=== PATIENT | female | born 1980 | race Caucasian/White ===

== ENCOUNTER 2019-01-29 19:39 | Emergency (ER) | payer OTHER ==
[~2019-01-29] VITALS: Ht 162.6 cm; Wt 61.2 kg
[~2019-01-29 19:39] MED LIST: ABAC300; ALBU.083IS IH; ALBU90OI; ALBU90OI INH; ALBU90OI6 INH; ALBU90OI61 INH; AMIT50; AMOX500 PO; ASPI81CH PO; ATEN25 PO; AZIT250 PO; AZIT500 PO; Ativan0.5 MG PO; BENZ100A PO; BUSP10 PO; BUSP15 PO; Bactrim Ds Tab1 EACH PO; CEPH500 PO; CLON.5 PO; CLON1 PO; CODACE30 PO; CRUTCH4 USE; CYCL10 PO; DICMIS50EC PO; DOCU100 PO; DULOXETINE HCL30 MG PO; ENDOCET; ESTRODOL TP; FAMO20 PO; FLUC150A PO; FLUC200 PO; FLUSAL2505 INH; FLUT110OIA INH; GUAPSEER PO; HERBS; HYDACE5 PO; HYDMOR2 PO; HYDMOR4 PO; HYDPAM50 PO; HYDR1TAB94 PO; HYOS.125 SL; IBUP800 PO; Imitrex25 MG PO; Imitrex50 MG PO; KETO10 PO; Keflex500 MG PO; LEVO750 PO; LIDO2L TOP; LORA.5 PO; LORA2 PO; Lamictal200 MG PO; MECL12.5 PO; MECL25 PO; MEDR5 PO; MELA3; MELA3 PO; METCAR500 PO; METCAR750; MONTELUKAST SOD10 MG; NAPR500; NAPR500 PO; NORCO PO; Naprosyn375 MG PO; Naprosyn500 MG PO; Norco 5-325 Ta1 EACH PO; OLAN5 PO; OMEP20ER PO; ORACONA PO; OXYACE5T PO; OXYC10TA19; OXYC5 PO; PANT20; PANT40; PANT40 PO; PHENA200 PO; PRAZ1 PO; PRAZ2 PO; PRAZ5 PO; PRED1 PO; PROACE100 PO; PROC10 PO; PROM25 PO; PROM50S PR; Prazosin HCl1 MG PO; Prazosin HCl2 MG PO; Pyridium100 MG PO; RANI150 PO; RXHYDMOR2 PO; RXOXYACE PO; SACC250C; SERT25 PO; SULF10OPSA OS; SULTRIDS PO; SUMA20NI; SUMA25 PO; TIOT18; TIOT18 IH; TIOT18 INH; TRAM50 PO; TRAZ100 PO; TRAZ50 PO; TRAZODONE; Tylenol325 MG PO; Valium5 MG PO; Zithromax250 MG PO; [UNRECOGNIZED DRUG - OTHER] PO
[2019-01-29] MEDS ORDERED: Bactrim Ds Tab1 EACH PO (20:13)
== END 2019-01-29 20:23 | disposition home or self-care (01) ==
LOC: ER 19:39
DX: L03.314 Cellulitis of groin (principal); L02.214 Cutaneous abscess of groin; Z88.1 Allergy status to other antibiotic agents; Z88.5 Allergy status to narcotic agent; Z88.6 Allergy status to analgesic agent; Z91.048 Other nonmedicinal substance allergy status; Z79.899 Other long term (current) drug therapy; J45.909 Unspecified asthma, uncomplicated; F41.9 Anxiety disorder, unspecified; F17.210 Nicotine dependence, cigarettes, uncomplicated
CPT/HCPCS: 99282

== ENCOUNTER 2020-11-10 02:46 | Inpatient (IN) | payer OTHER ==
[~2020-11-10] VITALS: Ht 162.6 cm; Wt 67.7 kg
[2020-11-10 04:21] LABS: BASOPHILS ABSOLUTE AUTO 0.09 K/mm3 (0.00-0.23); BASOPHILS PERCENT AUTO 1 % (0-2); EOSINOPHILS ABSOLUTE AUTO 0.83 K/mm3 (0.00-0.68); EOSINOPHILS PERCENT AUTO 6 % (0-6); Hematocrit 35.1 % (33.0-51.0); Hemoglobin 11.4 g/dL (11.5-16.0); IMMATURE GRAN ABSOLUTE AUTO 0.07 K/mm3 (0.00-0.10); IMMATURE GRAN PERCENT AUTO 1 % (0-1); LYMPHOCYTES ABSOLUTE AUTO 4.11 K/mm3 (0.84-5.20); LYMPHOCYTES PERCENT AUTO 29 % (21-46); MONOCYTES ABSOLUTE AUTO 1.07 K/mm3 (0.16-1.47); MONOCYTES PERCENT AUTO 8 % (4-13); Mean Corpuscular HGB 29.5 pg (26.0-34.0); Mean Corpuscular HGB Conc 32.5 g/dL (31.5-36.5); Mean Corpuscular Volume 91 fL (80-100); Mean Platelet Volume 9.1 fL (9.1-12.4); NEUTROPHILS ABSOLUTE AUTO 7.93 K/mm3 (1.96-9.15); NEUTROPHILS PERCENT AUTO 56 % (41-73); Platelet Count 361 K/mm3 (150-400); RDW Coefficient Variation 13.6 % (11.7-14.2); RDW Standard Deviation 45.2 fL (35.1-46.3); Red Blood Cell Count 3.86 M/mm3 (3.80-5.20)
[2020-11-10 04:41] LABS: Anion Gap 4 mmol/L (6-16); Blood Urea Nitrogen 12 mg/dL (8-24); Bun/Creatinine Ratio 20.4 (12.0-20.0); CO2, Blood 30 mmol/L (21-32); Calcium, Blood 8.7 mg/dL (8.5-10.1); Chloride, Blood 103 mmol/L (98-108); Creatinine, Blood 0.59 mg/dL (0.40-1.00); Glomerular Filtration Rate >60 (60-); Glucose, Blood 95 mg/dL (70-99); Potassium, Blood 3.5 mmol/L (3.5-5.5); Sodium, Blood 137 mmol/L (136-145)
[2020-11-10 12:33] LABS: U Amphetamine Screen DETECTED; U Barbituate Screen Not Detected; U Benzodiazapine Screen Not Detected; U Buprenorphine Screen Not Detected; U Cannabinoids Screen Not Detected; U Cocaine Screen Not Detected; U Methadone Screen Not Detected; U Methamphetamine Screen DETECTED; U Opiates Screen DETECTED; U Oxycodone Screen Not Detected; U Phencyclidine Screen Not Detected; U Propoxyphene Screen Not Detected
[2020-11-10 15:02] LABS: SARS-Cov-2 (COVID-19) PCR, MMC NEGATIVE (NEGATIVE)
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
--- NOTE | 2020-11-11 04:22 | NUR ---
SHIFT SUMMARY A/OX3, SBA TO BSC D/T PLACEMENT OF R. FOOT IV. DRESSING TO R. WRIST C/D/I. MEDICATED FOR PAIN PER EMAR. VSS, NO ACUTE CHANGES AT THIS TIME. BED IN LOWEST POSITION WITH CALL LIGHT IN REACH. WILL CONTINUE TO MONITOR AND REPORT TO ONCOMING RN.
[2020-11-11 06:08] LABS: BASOPHILS ABSOLUTE AUTO 0.04 K/mm3 (0.00-0.23); BASOPHILS PERCENT AUTO 0 % (0-2); EOSINOPHILS PERCENT AUTO 0 % (0-6); Hematocrit 33.8 % (33.0-51.0); Hemoglobin 10.6 g/dL (11.5-16.0); IMMATURE GRAN ABSOLUTE AUTO 0.06 K/mm3 (0.00-0.10); IMMATURE GRAN PERCENT AUTO 1 % (0-1); LYMPHOCYTES ABSOLUTE AUTO 1.63 K/mm3 (0.84-5.20); LYMPHOCYTES PERCENT AUTO 13 % (21-46); MONOCYTES ABSOLUTE AUTO 0.31 K/mm3 (0.16-1.47); MONOCYTES PERCENT AUTO 3 % (4-13); Mean Corpuscular HGB Conc 31.4 g/dL (31.5-36.5); Mean Corpuscular Volume 89 fL (80-100); Mean Platelet Volume 9.4 fL (9.1-12.4); NEUTROPHILS ABSOLUTE AUTO 10.18 K/mm3 (1.96-9.15); NEUTROPHILS PERCENT AUTO 83 % (41-73); Platelet Count 408 K/mm3 (150-400); RDW Coefficient Variation 13.3 % (11.7-14.2); RDW Standard Deviation 43.8 fL (35.1-46.3); Red Blood Cell Count 3.79 M/mm3 (3.80-5.20); White Blood Cell Count 12.22 K/mm3 (4.00-11.30)
[2020-11-11 06:24] LABS: Alanine Aminotransfer (ALT/SGP 23 U/L (12-78); Albumin, Blood 2.8 g/dL (3.4-5.0); Albumin/Globulin Ratio 0.6 (0.8-1.8); Alk Phos 73 U/L (50-136); Anion Gap 5 mmol/L (6-16); Aspartate Aminotrans (AST/SGOT 16 U/L (12-37); Bilirubin, Total 0.3 mg/dL (0.1-1.0); Blood Urea Nitrogen 11 mg/dL (8-24); Bun/Creatinine Ratio 15.3 (12.0-20.0); CO2, Blood 26 mmol/L (21-32); Chloride, Blood 110 mmol/L (98-108); Creatinine, Blood 0.72 mg/dL (0.40-1.00); Globulin, Blood 4.5 g/dL (2.2-4.0); Glomerular Filtration Rate >60 (60-); Glucose, Blood 128 mg/dL (70-99); Potassium, Blood 3.7 mmol/L (3.5-5.5); Sodium, Blood 141 mmol/L (136-145); Total Protein, Blood 7.3 g/dL (6.4-8.2)
[2020-11-11 16:57] LABS: Vancomycin, Trough 25.3 ug/mL (5.0-10.0)
--- NOTE | 2020-11-11 17:45 | NUR ---
1200 ZOSYN NOT HUNG UNTIL 1530 DUE TO NO IV ACCESS. PHARAMCY STATES TO HANG 1800 @ 2000, PT WILL THEN BE BACK ON NORMAL SCHEDULED ADMINISTRATIONS. WILL INFORM ONCOMING RN.
--- NOTE | 2020-11-11 17:46 | NUR ---
SHIFT SUMMARY NO ACUTE CHANGES, A&Ox4, CALM AND COOPERATIVE. BRADYCARDIC T/O SHIFT, HOSPITALIST AWARE. PT EXPERIENCING SOME N/V, ZOFRAN EFFECTIVE AT THIS TIME. PG PLACED IN SAVAGE, FLUSHES AND DRAWS WELL. R WRIST DRESSING CHANGED PER ORDERS, PT TOLERATED FAIRLY, WAS PAINFUL. WOUND CULTURE COMPLETED @ THIS TIME WELL. TREATED X2 FOR PAIN T/O SHIFT. LITTLE ORAL INTAKE DUE TO N/V. PLACED ON CONTACT PRECAUTIONS DUE TO NASAL SWAB COMING BACK + FOR MRSA. cH VANCO TROUGH THIS AFTERNOON, HELD CURRENT DOSE OF VANCO PER PHARMACIST. POSSIBLE DC TOMORROW PENDING BLOOD CULTURES. PT IS CURRENTLY LYING IN BED, BOYFRIEND @ BEDSIDE.
--- NOTE | 2020-11-11 20:45 | NUR ---
AMA STATES WANTS TO LEAVE. HAS SOME PRESSING PERSONAL ISSUES GOING ON AND CANNOT WAIT UNTIL THE MORNING. STRONGLY ENCOURAGED TO STAY UNTIL AT LEAST TOMORROW WHEN SHE COULD POTENTIALLY BE DISCHARGED WITH ABX AND SCHEDULED WOUND CARE. STATES SHE WOULD STAY IF WE WOULD ALLOW HER S/O TO COME UP TO HER ROOM, SO SHE COULD EXPLAIN TO HIM WHAT NEEDED TO BE DONE. EXPLAINED THAT WE HAVE VISITING HOURS PER HOSPITAL POLICY. OFFERED FOR HER TO SPEAK TO [employer] REPRINTING UNIT OPERATOR; AGREEABLE.
--- NOTE | 2020-11-11 22:30 | NUR ---
[facility] AFTER SPEAKING TO PROCESS DEVELOPMENT ENGINEER; AGREEABLE TO RECIEVING A LAST DOSE OF VANCOMYCIN PRIOR TO LEAVING [facility]. THIS RN BRINGING IN VANCOMYCIN TO HANG; STOPPED ME AND TOLD ME THAT SHE WAS LEAVING. SHE HAD MADE UP HER MIND DESPITE MULTIPLE TIMES EXPRESSING THE NEED TO CONTINUE IV ABX.
--- NOTE | 2020-11-11 22:44 | NUR ---
AMA A/O X4. AWARE OF RISKS TO LEAVING AMA. SIGNED AMA FORM. PG REMOVED AND PRESSURE DRESSING PLACED. BELONGINGS GATHERED. DRESSED. WALKED OUT BY OWN MEANS.
--- NOTE | 2020-11-11 23:00 | NUR ---
PHYSICIAN CORRESPONDENCE ON-CALL PROVIDER AWARE OF AMA
== END 2020-11-11 22:44 | disposition left against medical advice (07) | DRG 854 ==
LOC: ER 02:46 → MEDS 08:51
PROVIDERS: Emergency Medicine; Nurse Practitioner Acute Care; Pharmacist; Surgery; ADMIT Internal Medicine
PROC: 0JBG0ZZ Excision of Right Lower Arm Subcutaneous Tissue and Fascia, Open Approach (ICD-10-PCS; principal; 2020-11-10 16:45)
DX: A41.9 Sepsis, unspecified organism (principal); L02.413 Cutaneous abscess of right upper limb; I96 Gangrene, not elsewhere classified; L03.113 Cellulitis of right upper limb; G40.909 Epilepsy, unspecified, not intractable, without status epilepticus; F17.210 Nicotine dependence, cigarettes, uncomplicated; Z20.822 Contact with and (suspected) exposure to COVID-19; J45.909 Unspecified asthma, uncomplicated; J43.9 Emphysema, unspecified; F15.10 Other stimulant abuse, uncomplicated; B19.20 Unspecified viral hepatitis C without hepatic coma; K21.9 Gastro-esophageal reflux disease without esophagitis; F41.8 Other specified anxiety disorders; Z53.29 Procedure and treatment not carried out because of patient's decision for other reasons; Z88.6 Allergy status to analgesic agent; Z88.1 Allergy status to other antibiotic agents; Z88.5 Allergy status to narcotic agent; Z91.048 Other nonmedicinal substance allergy status; Z88.8 Allergy status to other drugs, medicaments and biological substances; Z90.89 Acquired absence of other organs; Z98.890 Other specified postprocedural states; Z98.1 Arthrodesis status; Z90.49 Acquired absence of other specified parts of digestive tract; Z90.710 Acquired absence of both cervix and uterus; Z59.0 Homelessness; Z86.19 Personal history of other infectious and parasitic diseases; Z91.14 Patient's other noncompliance with medication regimen
CPT/HCPCS: 36415; 73110; 73201; 80048; 80053; 80202; 83605; 85025; 86140; 87040; 87070; 87075; 87077; 87186; 87205; 96365-59; 96367; 96375-59; 99285-25; A9270; C1751; J1100; J2270; J2405; J2543; J2704; J3010; J3370; J7030; J7050; J7120; Q9967; U0004